=== PATIENT | female | born 1990 | race African-American/Black ===

== ENCOUNTER 2018-06-18 23:42 | Emergency (ER) | payer MEDICAID ==
[~2018-06-18] VITALS: Ht 177.8 cm; Wt 68.2 kg
[2018-06-19 01:46] LABS: HEMATOCRIT. 29.8 % (36.0-48.0); HEMOGLOBIN. 9.8 g/dL (12.0-16.0); MEAN CORPUSCULAR HEMOGLOBIN 26.9 pg (28.0-32.0); MEAN CORPUSCULAR VOLUME 82.1 fL (81.0-99.0); MEAN PLATELET VOLUME 8.4 fl (7.4-10.4); PLATELET 237 x1000/uL (130-400); RED BLOOD CELL COUNT 3.62 mill/uL (4.2-5.4); RED CELL DISTRIBUTION WIDTH 14.6 % (11.6-14.6)
[2018-06-19 01:52] LABS: CHLORIDE 110 mEq/L (98-107)
[2018-06-19 01:56] LABS: ETHANOL BLOOD < 10 mg/dL
[2018-06-19 02:07] LABS: CLARITY URINE CLEAR (CLEAR); COLOR URINE YELLOW (YELLOW); KETONES URINE TRACE (NEGATIVE); LEUKOCYTE ESTERASE URINE NEGATIVE (NEGATIVE); NITRITE URINE NEGATIVE (NEGATIVE); OCCULT BLOOD URINE NEGATIVE (NEGATIVE); PROTEIN URINE NEGATIVE (NEGATIVE); UROBILINOGEN URINE 0.2 E.U./dL (0.2-1.0)
[2018-06-19 02:10] LABS: ATYPICAL LYMPHOCYTES 1; PLATELET ESTIMATE NORMAL
[2018-06-19 02:18] LABS: *AMPHETAMINES SCREEN URINE NEGATIVE (NEGATIVE); *BARBITURATES SCREEN URINE NEGATIVE (NEGATIVE); *BENZODIAZEPINES SCREEN URINE NEGATIVE (NEGATIVE); *COCAINE SCREEN URINE NEGATIVE (NEGATIVE); METHADONE URINE SCREEN NEGATIVE (NEGATIVE); OPIATES URINE SCREEN NEGATIVE (NEGATIVE)
[2018-06-19 02:19] LABS: CANNABINOID URINE SCREEN NEGATIVE (NEGATIVE); PHENCYCLIDINE URINE SCREEN NEGATIVE (NEGATIVE)
[2018-06-19] MEDS ORDERED: DIVALPROEX SODIUM 250MG ER TABLET PO ONE (04:15)
[2018-06-20] MEDS ORDERED: HALOPERIDOL 5MG TABLET PO ONE (01:30)
[2018-06-20] MEDS ORDERED: DIPHENHYDRAMINE 50MG CAPSULE PO ONE (04:45)
[2018-06-20 14:54] VITALS: BP 105/64
== END 2018-06-20 14:58 | disposition home or self-care (01) ==
LOC: ER 23:42
DX: R44.0 Auditory hallucinations (principal); D64.9 Anemia, unspecified; F31.9 Bipolar disorder, unspecified
CPT/HCPCS: 36415; 80053; 80305; 80307; 80320; 80329; 81003; 81025; 85025; 99284; J1630; Q0163; Z7610; G0480

== ENCOUNTER 2018-06-22 23:00 | Emergency (ER) | payer MEDICAID ==
[~2018-06-22] VITALS: Ht 182.9 cm; Wt 55.0 kg
[2018-06-22] MEDS ORDERED: OLANZAPINE 5MG TABLET ODT PO ONE (23:45)
[2018-06-23 00:19] LABS: BASOPHILS % 0.8 % (0.0-2.0); HEMATOCRIT. 32.1 % (36.0-48.0); LYMPHOCYTES % 36.6 % (20.0-50.0); MEAN CORPUSCULAR HEMOGLOBIN 27.9 pg (28.0-32.0); MEAN CORPUSCULAR VOLUME 81.4 fL (81.0-99.0); MEAN PLATELET VOLUME 8.2 fl (7.4-10.4); MONOCYTES % 14.6 % (2.0-8.0); PLATELET 269 x1000/uL (130-400); RED BLOOD CELL COUNT 3.95 mill/uL (4.2-5.4); RED CELL DISTRIBUTION WIDTH 14.6 % (11.6-14.6)
[2018-06-23 00:24] LABS: CHLORIDE 106 mEq/L (98-107)
[2018-06-23 00:30] LABS: ETHANOL BLOOD < 10 mg/dL
[2018-06-23 00:32] LABS: *BARBITURATES SCREEN URINE NEGATIVE (NEGATIVE); *BENZODIAZEPINES SCREEN URINE NEGATIVE (NEGATIVE)
[2018-06-23 00:33] LABS: *AMPHETAMINES SCREEN URINE NEGATIVE (NEGATIVE); *COCAINE SCREEN URINE NEGATIVE (NEGATIVE); CANNABINOID URINE SCREEN NEGATIVE (NEGATIVE); METHADONE URINE SCREEN NEGATIVE (NEGATIVE); OPIATES URINE SCREEN NEGATIVE (NEGATIVE); PHENCYCLIDINE URINE SCREEN NEGATIVE (NEGATIVE)
[2018-06-23 05:07] LABS: CLARITY URINE CLEAR (CLEAR); COLOR URINE YELLOW (YELLOW); KETONES URINE 2+ (NEGATIVE); LEUKOCYTE ESTERASE URINE NEGATIVE (NEGATIVE); NITRITE URINE NEGATIVE (NEGATIVE); OCCULT BLOOD URINE NEGATIVE (NEGATIVE); PH URINE 5.5 (4.5-8.0); PROTEIN URINE NEGATIVE (NEGATIVE); SPECIFIC GRAVITY URINE 1.034 (1.005-1.030)
[2018-06-23 14:14] VITALS: BP 119/70
== END 2018-06-23 14:14 | disposition home or self-care (01) ==
LOC: ER 23:00
DX: F20.9 Schizophrenia, unspecified (principal); R44.3 Hallucinations, unspecified; F17.200 Nicotine dependence, unspecified, uncomplicated; Z59.0 Homelessness; Z88.9 Allergy status to unspecified drugs, medicaments and biological substances; Z91.09 Other allergy status, other than to drugs and biological substances; Z88.8 Allergy status to other drugs, medicaments and biological substances
CPT/HCPCS: 36415; 80305; 80307; 80320; 80329; 81025; 99284; G0480

== ENCOUNTER 2019-02-22 11:23 | Emergency (ER) | payer SELFPAY ==
[~2019-02-22] VITALS: Ht 180.3 cm; Wt 85.0 kg
[2019-02-22] MEDS ORDERED: OLANZAPINE 5MG TABLET ODT PO ONE (13:30)
[2019-02-22 14:12] LABS: CLARITY URINE CLOUDY (CLEAR); COLOR URINE YELLOW (YELLOW); KETONES URINE 2+ (NEGATIVE); LEUKOCYTE ESTERASE URINE 2+ (NEGATIVE); NITRITE URINE NEGATIVE (NEGATIVE); OCCULT BLOOD URINE NEGATIVE (NEGATIVE); PH URINE 5.5 (4.5-8.0); PROTEIN URINE NEGATIVE (NEGATIVE); SPECIFIC GRAVITY URINE 1.033 (1.005-1.030)
[2019-02-22 14:43] LABS: OPIATES URINE SCREEN NEGATIVE (NEGATIVE)
[2019-02-22 14:44] LABS: *AMPHETAMINES SCREEN URINE NEGATIVE (NEGATIVE); *BARBITURATES SCREEN URINE NEGATIVE (NEGATIVE); *BENZODIAZEPINES SCREEN URINE NEGATIVE (NEGATIVE); METHADONE URINE SCREEN NEGATIVE (NEGATIVE); PHENCYCLIDINE URINE SCREEN NEGATIVE (NEGATIVE)
[2019-02-22 14:46] LABS: *COCAINE SCREEN URINE PRESUMTIVE POSITIVE (NEGATIVE); CANNABINOID URINE SCREEN PRESUMTIVE POSITIVE (NEGATIVE)
[2019-02-22 15:03] LABS: HEMATOCRIT. 30.8 % (36.0-48.0); HEMOGLOBIN. 10.3 g/dL (12.0-16.0); MEAN CORPUSCULAR HEMOGLOBIN 28.8 pg (28.0-32.0); MEAN CORPUSCULAR VOLUME 86.1 fL (81.0-99.0); MEAN PLATELET VOLUME 7.9 fl (7.4-10.4); PLATELET 252 x1000/uL (130-400); RED BLOOD CELL COUNT 3.58 mill/uL (4.2-5.4); RED CELL DISTRIBUTION WIDTH 14.8 % (11.6-14.6)
[2019-02-22 15:09] LABS: CHLORIDE 108 mEq/L (98-107)
[2019-02-22 15:14] LABS: ETHANOL BLOOD < 10 mg/dL
[2019-02-22 15:33] LABS: B-HCG QUANTITATIVE 8251 mIU/mL (<3)
[2019-02-22] MEDS ORDERED: NITROFURANTOIN 100MG M/M CAPSULE PO ONE (16:00)
[2019-02-22] MEDS ORDERED: SODIUM CHLORIDE 0.9% 1,000 ML IV ONE (16:38)
[2019-02-22 17:17] LABS: PLATELET ESTIMATE NORMAL
[2019-02-22] MEDS: NITROFURANTOIN 100MG M/M CAPSULE PO SCH (22:06)
[2019-02-23] MEDS: NITROFURANTOIN 100MG M/M CAPSULE PO SCH (09:19)
[2019-02-23 14:50] VITALS: BP 109/54
== END 2019-02-23 15:45 | disposition home or self-care (01) ==
LOC: ER 11:23
DX: O99.342 Other mental disorders complicating pregnancy, second trimester (principal); O23.32 Infections of other parts of urinary tract in pregnancy, second trimester; R45.851 Suicidal ideations; Z3A.19 19 weeks gestation of pregnancy; F20.9 Schizophrenia, unspecified; F14.129 Cocaine abuse with intoxication, unspecified
CPT/HCPCS: 36415; 76805; 80053; 80305; 80307; 80320; 80329; 81003; 81025; 84702; 85025; 86850; 86900; 86901; 87086; 99284; J7030; Z7610; G0480